=== PATIENT | female | born 1950 | race Caucasian/White ===

== ENCOUNTER → 2016-07-13 | Outpatient (CLI) | payer MEDICARE ==
[~2016-07-13] VITALS: Ht 167.6 cm; Wt 68.0 kg
== END ==
LOC: OPSV 14:47
DX: M81.8 Other osteoporosis without current pathological fracture (principal)
CPT/HCPCS: 96365; J3489; J7050

== ENCOUNTER → 2016-07-23 | Outpatient (CLI) | payer MEDICARE | LOC: KOH-I 07-19 13:00 | DX: F17.210 Nicotine dependence, cigarettes, uncomplicated (principal) | CPT/HCPCS: G0297 ==

== ENCOUNTER → 2016-10-19 | Outpatient (CLI) | payer MEDICARE | LOC: KOH-I 15:30 | DX: R10.32 Left lower quadrant pain (principal); E27.8 Other specified disorders of adrenal gland; K31.4 Gastric diverticulum; D13.1 Benign neoplasm of stomach | CPT/HCPCS: 74176 ==

== ENCOUNTER → 2017-01-27 | Outpatient (CLI) | payer MEDICARE | LOC: LAB 07:31 | DX: Z04.8 Encounter for examination and observation for other specified reasons (principal) | CPT/HCPCS: 36415; 82088; 82533; 83835; 84244 ==

== ENCOUNTER → 2020-12-30 | Outpatient (CLI) | payer MEDICARE | LOC: HEART 5 10:30 | DX: R07.9 Chest pain, unspecified (principal); R00.2 Palpitations; R42 Dizziness and giddiness; I08.0 Rheumatic disorders of both mitral and aortic valves | CPT/HCPCS: 93306 ==

== ENCOUNTER → 2021-09-14 | Outpatient (CLI) | payer MEDICARE | LOC: OPSV 08-15 13:00 | DX: M81.0 Age-related osteoporosis without current pathological fracture (principal) | CPT/HCPCS: 96365; J3489 ==